=== PATIENT | female | born 1990 | race Caucasian/White ===

== ENCOUNTER 2020-05-21 15:53 | Outpatient (REF) | payer OTHER, SELFPAY | END 2020-05-21 15:54 | disposition home or self-care (01) | LOC: HO.LAB 15:53 | PROVIDERS: Visit Provider Internal Medicine | DX: Z20.822 Contact with and (suspected) exposure to COVID-19 (principal) | CPT/HCPCS: C9803; U0003; U0005 ==

== ENCOUNTER 2022-04-15 17:46 | Emergency (ER) | payer OTHER, SELFPAY ==
--- NOTE | ~2022-04-15 | XR_ITS ---
EXAMINATION: XR FOOT, LEFT CLINICAL INFORMATION: Pain COMPARISON: None TECHNIQUE: AP, lateral, and oblique views of the left foot. FINDINGS: Acute spiral fracture of the 5th metatarsal with overlying soft tissue swelling. Alignment is anatomic. Joint spaces are maintained. XR/XR foot LT min 3V IMPRESSION: Acute spiral fracture of the 5th metatarsal with overlying soft tissue swelling.
--- NOTE | ~2022-04-15 | XR_ITS ---
EXAMINATION: XR ANKLE, LEFT CLINICAL INFORMATION: Pain. COMPARISON: None TECHNIQUE: AP, lateral, and mortise views of the left ankle. FINDINGS: There is a comminuted fracture mid fifth metatarsal with mild displacement. The ankle mortise and subtalar joints are normal. There is lateral malleolar moderate soft tissue swelling. XR/XR ankle LT min 3V IMPRESSION: 1. Comminuted fracture mid fifth metatarsal with mild displacement. 2. Moderate lateral malleolar soft tissue swelling.
[2022-04-15 18:36] VITALS: BP 126/76; PULSE 90; RESP 20; TEMP 36.7; O2SAT 100; BMI 27.4
--- NOTE | 2022-04-15 18:41 | ED.GENADULT ---
HPI - General Adult General Chief complaint: Fall <Mario Cid - Last Filed: 04/15/22 18:42> Stated complaint: Fall/ Foot pain <Mario Cid - Last Filed: 04/15/22 18:42> Time Seen by Provider: 04/15/22 19:40 <Mario Cid - Last Filed: 04/15/22 18:42> Source: patient <Yaima Campuzano NP - Last Filed: 04/16/22 02:18> Mode of arrival: ambulatory <Yaima Campuzano NP - Last Filed: 04/16/22 02:18> Limitations: no limitations <Yaima Campuzano NP - Last Filed: 04/16/22 02:18> History of Present Illness HPI narrative: 31-year-old female presents with left foot pain and swelling with bruising after falling down some stairs. She is unable to bear weight on the foot. <Yaima Campuzano NP - Last Filed: 04/16/22 02:18> Onset (ago): hour(s) (Within the hour of arrival) <Yaima Campuzano NP - Last Filed: 04/16/22 02:18> Location: left and lower extremity <Yaima Campuzano NP - Last Filed: 04/16/22 02:18> Severity: severe <Yaima Campuzano NP - Last Filed: 04/16/22 02:18> Severity scale (1-10): 10 <Yaima Campuzano NP - Last Filed: 04/16/22 02:18> Quality: aching <Yaima Campuzano NP - Last Filed: 04/16/22 02:18> Pain Consistency: constant <Yaima Campuzano NP - Last Filed: 04/16/22 02:18> Relieving factors: none <Yaima Campuzano NP - Last Filed: 04/16/22 02:18> Exacerbating factors: movement <Yaima Campuzano NP - Last Filed: 04/16/22 02:18> Associated symptoms: denies other symptoms <Yaima Campuzano NP - Last Filed: 04/16/22 02:18> Treatments prior to arrival: cold therapy <Yaima Campuzano NP - Last Filed: 04/16/22 02:18> Related Data Home medications: Previous Rx's Medication Instructions Recorded ibuprofen 600 mg tablet 600 mg PO Q6H PRN pain #90 tabs 04/15/22 oxycodone 5 mg tablet 5 mg PO Q4H PRN pain 3 days #18 04/15/22 tabs <Mario Cid - Last Filed: 04/15/22 18:42> Allergies/adverse reactions: Allergies Allergy/AdvReac Type Severity Reaction Status Date / Time No Known Allergies Allergy Unverified 11/01/19 18:06 <Mario Cid - Last Filed: 04/15/22 18:42> Review of Systems Review of Systems: Constitutional: No Fever, No Chills Cardiovascular: No Chest Pain, No SOB Respiratory: No Cough, No Dyspnea Musculoskeletal: positive left foot pain swelling and bruising, No Myalgias, No Joint Swelling Neuro: No Weakness, No Numbness, No Paresthesias, No Dizziness, No Headache <Yaima Campuzano NP - Last Filed: 04/16/22 02:18> Yes all other systems are reviewed and are negative <Yaima Campuzano NP - Last Filed: 04/16/22 02:18> [facility] Past Medical History Attestation statement: The following information was validated with the patient. <Yaima Campuzano NP - Last Filed: 04/16/22 02:18> Source: old records reviewed <Yaima Campuzano NP - Last Filed: 04/16/22 02:18> Social History Social History: Social History Advance Directives: No Advance Directives Information Provided: No <Mario Cid - Last Filed: 04/15/22 18:42> Physical Exam ED Vital Signs: Vital Signs - 24 hr 04/15/22 18:36 Temperature 98.1 F Pulse Rate 90 Respiratory Rate 20 Blood Pressure 126/76 Pulse Oximetry 100 Oxygen Delivery Method Room Air BMI result Body Mass Index 27.4 <Mario Cid - Last Filed: 04/15/22 18:42> Vital Signs - 24 hr 04/15/22 18:36 Temperature 98.1 F Pulse Rate 90 Respiratory Rate 20 Blood Pressure 126/76 Pulse Oximetry 100 Oxygen Delivery Method Room Air BMI result Body Mass Index 27.4 <Yaima Campuzano NP - Last Filed: 04/16/22 02:18> Appearance: Alert. Oriented X3. Moderate distress. Eyes: Pupils equal, round and reactive to light. Neck: Normal inspection. Neck supple. CVS: Normal heart rate and rhythm. Pulses normal. Respiratory: No respiratory distress. Skin: Skin warm and dry. Normal skin color. Extremities: Left foot swelling and bruising to the metatarsal laterally. Brisk capillary refill equal pulses. Neuro: No motor deficit. No sensory deficit. Cranial nerves 2-12 intact <Yaima Campuzano NP - Last Filed: 04/16/22 02:18> Course Course Course Narrative: 31-year-old female presents for evaluation of left ankle and foot pain. She reports tripping and falling down a few steps walking much. She injured her left foot and ankle. She endorses mild shoulder pain that has full range of motion through shoulder. Denies hitting head or losing consciousness. We will obtain x-ray of the left foot and ankle, as the left lateral malleolus is edematous/tender and the patient is not able to walk due to the pain <Mario Cid - Last Filed: 04/15/22 18:42> 31-year-old female presents for evaluation of left ankle and foot pain. She reports tripping and falling down a few steps walking much. She injured her left foot and ankle. She endorses mild shoulder pain that has full range of motion through shoulder. Denies hitting head or losing consciousness. We will obtain x-ray of the left foot and ankle, as the left lateral malleolus is edematous/tender and the patient is not able to walk due to the pain 31-year-old female presents for left foot and ankle pain after a mechanical fall. Patient was doing laundry and tripped on a blanket, and fell down a few stairs. She did not hit her head or lose consciousness. But states to have severe pain in her left foot and is unable to walk. There is significant bruising and swelling to the left lateral metatarsals. X-rays were completed while she was in the emergency department waiting room which shows a spiral displaced fracture to the 5th metatarsal. Range of motion to the ankle not assessed secondary to the severity of the patient's fracture. Patient is able to move all toes however has pain on movement. Patient does have brisk capillary refill, equal pulses and normal sensation to the foot. I did describe in detail the importance of nonweightbearing, understanding the signs and symptoms indicating compartment syndrome, rest ice and elevation. Will place patient in a posterior stirrup splint, provide crutches, and pain management with oxycodone. Did discuss in detail risks and benefits of coccyx code own, as well as utilizing Tylenol, Motrin, and ice. Pictures of patient's fracture given to the patient per request. I will refer this patient to Dr. Royal, she does understand that if she does not hear from his office in 2 days that she must call for an appointment. She does understand signs and symptoms indicating compartment syndrome, nonweightbearing, and signs indicating need for emergent intervention. Patient agrees with plan of care discharge home. <Yaima Campuzano NP - Last Filed: 04/16/22 02:18> Medications Administered Discontinued Medications Generic Name Dose Route Start Last Admin Trade Name Freq PRN Reason Stop Dose Admin Acetaminophen 650 mg 04/15/22 20:01 04/15/22 20:10 Acetaminophen 325 Mg Tablet PO 04/15/22 20:02 650 mg ONCE ONE Administration Oxycodone HCl 5 mg 04/15/22 20:01 04/15/22 20:10 Oxycodone Hcl Immed Release 5 Mg Tablet PO 04/15/22 20:02 5 mg ONCE ONE Administration <Mario Cid - Last Filed: 04/15/22 18:42> Medications Administered Discontinued Medications Generic Name Dose Route Start Last Admin Trade Name Freq PRN Reason Stop Dose Admin Acetaminophen 650 mg 04/15/22 20:01 04/15/22 20:10 Acetaminophen 325 Mg Tablet PO 04/15/22 20:02 650 mg ONCE ONE Administration Oxycodone HCl 5 mg 04/15/22 20:01 04/15/22 20:10 Oxycodone Hcl Immed Release 5 Mg Tablet PO 04/15/22 20:02 5 mg ONCE ONE Administration <Yaima Campuzano NP - Last Filed: 04/16/22 02:18> Medical Decision Making Differential Diagnosis Differential Diagnoses: The differential diagnosis associated with the presentation includes <Yamia Campuzano NP - Last Filed: 04/16/22 02:18> Fracture, dislocation, tendon ligament injury <Yaima Campuzano NP - Last Filed: 04/16/22 02:18> Independent Interpretation I performed an independent interpretation of an: Plain X-Ray <Yaima Campuzano NP - Last Filed: 04/16/22 02:18> Radiology Impression Discussion of test interpretation with radiology: I have reviewed the radiologist's reading. <Yaima Campuzano NP - Last Filed: 04/16/22 02:18> Radiologist Impression: EXAMINATION: XR FOOT, LEFT CLINICAL INFORMATION: Pain? COMPARISON: None? TECHNIQUE: AP, lateral, and oblique views of the left foot. FINDINGS: Acute spiral fracture of the 5th metatarsal? with overlying soft tissue swelling. Alignment is anatomic. Joint spaces are maintained.? XR/XR foot LT min 3V IMPRESSION: Acute spiral fracture of the 5th metatarsal with overlying soft tissue swelling. ? <Yaima Campuzano NP - Last Filed: 04/16/22 02:18> External Record Review No prior records for this patient at this facility <Yaima Campuzano NP - Last Filed: 04/16/22 02:18> Prescription Management I considered prescription management with: Pain Medication <Yaima Campuzano NP - Last Filed: 04/16/22 02:18> Discharge Plan Discharge Clinical Impression: Displaced fracture of fifth metatarsal bone of left foot <Mario Cid - Last Filed: 04/15/22 18:42> Patient Disposition: Home, Self-Care <Mario Cid - Last Filed: 04/15/22 18:42> Instructions: Crutch Instructions (ED), Foot Fracture in Adults (ED), Compartment Syndrome (DC), R.I.C.E. Treatment (ED) <Mario Cid - Last Filed: 04/15/22 18:42> Additional Instructions: You were evaluated for injury sustained from a fall. You have a displaced 5th metatarsal fracture. Please keep splint in place until you see orthopedics. Use crutches for all walking. Do not put any weight on that foot. I gave you instructions for compartment syndrome. You do not have a compartment syndrome at this time, but you must understand signs and symptoms indicating compartment syndrome as this is an emergency. If you have any signs of this syndrome please return to the emergency department immediately. Loosen the Howie wrap on the splint. I prescribed oxycodone for pain management. This medication is a narcotic and has high risk for addiction and abuse. Do not drive or operate machinery while taking this medication. This medication can delay reaction time, increased risk falls, cause drowsiness and constipation. Drink plenty of fluids. Take MiraLax daily to soften stools. Alternate Tylenol 650 mg every 6 hours and Motrin 600 mg every 6 hours as needed for pain management. Consider taking these medications 3 hours apart so you have pain and fever management every 3 hours. Write down what time you take these medications to prevent accidental overdose. Motrin is the same medication as Advil and ibuprofen. Tylenol is the same medication as acetaminophen. Last dose of Tylenol was given around 20:00. Next due 2 a.m.. Consider taking Motrin at 23:00 so you can have nonnarcotic pain medication every 3 hours. Please follow-up with orthopedics. Thank you for choosing this emergency department for evaluation. Please follow-up with primary care physician as needed. Return to the emergency department for any new, concerning, or worsening symptoms. <Mario Cid - Last Filed: 04/15/22 18:42> Prescriptions: New oxycodone 5 mg tablet 5 mg PO Q4H PRN (Reason: pain) 3 Days Qty: 18 0RF Rx Instructions: Partial Fill upon patient request. ibuprofen 600 mg tablet 600 mg PO Q6H PRN (Reason: pain) Qty: 90 0RF <Mario Cid - Last Filed: 04/15/22 18:42> Referrals: Arsenio Royal MD [Physician] - 1 day (5th metatarsal fracture) <Mario Cid - Last Filed: 04/15/22 18:42> Stand Alone Forms: Work/School Release <Mario Cid - Last Filed: 04/15/22 18:42> Interventions: ED Discharge Assessment Last Done: 04/15/22 21:27 <Mario Cid - Last Filed: 04/15/22 18:42> Discharge Date/Time: 04/15/22 22:51 <Mario Cid - Last Filed: 04/15/22 18:42>
[2022-04-15] MEDS: Acetaminophen 325 MG TABLET 650 MG PO (20:10)
[2022-04-15] MEDS: oxyCODONE HCl Immed Release 5 MG TABLET PO (20:10)
== END 2022-04-15 22:51 | disposition home or self-care (01) ==
PROVIDERS: Emergency Provider Emergency Medicine; PCP Family Medicine
DX: S92.352A Displaced fracture of fifth metatarsal bone, left foot, initial encounter for closed fracture (principal); M79.672 Pain in left foot; M25.572 Pain in left ankle and joints of left foot; W10.9XXA Fall (on) (from) unspecified stairs and steps, initial encounter; Y93.9 Activity, unspecified; Y92.9 Unspecified place or not applicable; Y99.9 Unspecified external cause status
CPT/HCPCS: 29515; 73610; 73630; 99283; 99284